=== PATIENT | female | born 1975 | race Caucasian/White ===

== ENCOUNTER → 2016-09-02 | Outpatient (CLI) | payer BC ==
[~2016-09-02] MED LIST: NO ROUTINE MEDS
--- NOTE | 2016-09-02 10:27 | DI ---
Indication: ITS.REASON: M54.12 CERVICAL RADICULOPATHY neck and right arm pain for several months. PROCEDURE: MRI CERVICAL SPINE W/O CONTRAS: Encounter: Initial Comparison: Outside cervical spine radiograph report dated August 31, 2016 Technique: Multiplanar multisequence MR imaging of the cervical spine was performed without contrast. Findings: Alignment of the cervical spine is straightened with loss of the normal lordosis. There is degenerative endplate edema at C6-C7. The cervical and visualized upper thoracic spinal cord signal intensity is normal. Bone marrow signal intensity is otherwise normal. No acute fracture. Segmental analysis: C2-C3: Normal C3-C4: Normal C4-C5: Minimal central bulge without central canal or neural foraminal narrowing. C5-C6: Small right central disk protrusion causing mild right neural foraminal narrowing. No significant central canal or left neural foraminal stenosis. C6-C7: Central disk protrusion effacing the thecal sac causing mild central canal narrowing. Degenerative uncovertebral changes causing moderate right and mild left neural foraminal stenosis. C7-T1: Normal Impression: Degenerative disk disease most prominent on the right at C6-C7. .
== END ==
LOC: IMA 09:01
PROVIDERS: ATTEND Family Medicine
DX: M50.123 Cervical disc disorder at C6-C7 level with radiculopathy (principal); M50.122 Cervical disc disorder at C5-C6 level with radiculopathy